=== PATIENT | female | born 1970 | race Caucasian/White ===

== ENCOUNTER 2016-11-21 13:54 | Emergency (ER) | payer OTHER ==
[2016-11-21 14:05] VITALS: BP 143/87
[2016-11-21 14:47] LABS: APPEARANCE,URINE CLEAR; BILIRUBIN,URINE NEGATIVE (NEGATIVE); CALCIUM OXALATE CRYSTALS,URINE FEW /HPF; GLUCOSE, URINE NEGATIVE (NEGATIVE); KETONES,URINE NEGATIVE (NEGATIVE); LEUKOCYTE ESTERASE,URINE NEGATIVE (NEGATIVE); NITRITE,URINE NEGATIVE (NEGATIVE); PROTEIN,URINE NEGATIVE (NEGATIVE); URINE SPECIFIC GRAVITY 1.011; UROBILINOGEN,URINE NEGATIVE mg/dL (<2.0)
--- NOTE | 2016-11-21 14:49 | ER Document Report ---
ED General - General Chief Complaint: Abnormal Lab Results Stated Complaint: ABNORMAL LABS Time Seen by Provider: 11/21/16 14:21 Notes: Patient states she was recently seen by her primary care physician and diagnosed with hyponatremia. She was then referred to nephrology and they ordered an ultrasound. His ultrasound showed bilateral hydronephrosis that is improving since previous exam. It also showed multiple stones. I did call and speak with the patient's administrative representative who is Dr. Vences. Dr. Vences told me that she received report that the patient could not urinate so she referred her to the emergency department. Patient denies being unable to urinate. Patient states she feels sometimes that she cannot fully empty her bladder but she is able to urinate. She denies any pain. She denies any nausea or vomiting. No weakness or numbness. No vomiting or diarrhea. No fevers. Symptoms have been mild and intermittent. Nothing makes them better or worse. TRAVEL OUTSIDE OF THE [place] IN LAST 30 DAYS: No - Related Data Allergies/Adverse Reactions: No Known Allergies Allergy (Unverified 11/21/16 14:07) Past Medical History - Social History Smoking Status: Never Smoker Frequency of alcohol use: Occasional Family History: Reviewed & Not Pertinent Patient has suicidal ideation: No Patient has homicidal ideation: No Renal/ Medical History: Reports: Hx Kidney Stones. Denies: Hx Peritoneal Dialysis Review of Systems - Review of Systems Constitutional: denies: Fever, Malaise, Weakness Gastrointestinal: denies: Abdominal pain, Diarrhea, Vomiting Genitourinary: denies: Burning, Dysuria, Discharge -: Yes All other systems reviewed and negative Physical Exam - Vital signs Vitals: Temp Pulse Resp BP Pulse Ox 98.9 F 82 14 143/87 H 100 11/21/16 14:01 11/21/16 14:01 11/21/16 14:01 11/21/16 14:01 11/21/16 14:01 Interpretation: Normal - General General appearance: Appears well, Alert - HEENT Head: Normocephalic, Atraumatic Eyes: Normal Pupils: PERRL - Respiratory Respiratory status: No respiratory distress Chest status: Nontender Breath sounds: Normal Chest palpation: Normal - Cardiovascular Rhythm: Regular Heart sounds: Normal auscultation Murmur: No - Abdominal Inspection: Normal Distension: No distension Bowel sounds: Normal Tenderness: Nontender Organomegaly: No organomegaly - Back Back: Normal, Nontender - Extremities General upper extremity: Normal inspection, Nontender, Normal color, Normal ROM , Normal temperature General lower extremity: Normal inspection, Nontender, Normal color, Normal ROM , Normal temperature, Normal weight bearing. No: Kate's sign - Neurological Neuro grossly intact: Yes Cognition: Normal Orientation: AAOx4 Judith Coma Scale Eye Opening: Spontaneous Judith Coma Scale Verbal: Oriented Judith Coma Scale Motor: Obeys Commands Judith Coma Scale Total: 15 Speech: Normal Motor strength normal: LUE, RUE, LLE, RLE Sensory: Normal - Psychological Associated symptoms: Normal affect, Normal mood - Skin Skin Temperature: Warm Skin Moisture: Dry Skin Color: Normal Course - Re-evaluation Re-evalutation: 11/21/16 15:47 Patient has been resting comfortably in the emergency department without any complaints. Abdomen is still soft nontender and nondistended. I have discussed the case with her administrative representative. Patient is stable for discharge home and will follow-up as an outpatient. - Vital Signs Vital signs: Temp Pulse Resp BP Pulse Ox 98.9 F 82 14 143/87 H 100 11/21/16 14:01 11/21/16 14:01 11/21/16 14:01 11/21/16 14:01 11/21/16 14:01 - Laboratory Result Diagrams: 11/21/16 14:35 11/21/16 14:35 Laboratory results interpreted by me: 11/21/16 11/21/16 14:35 14:35 RDW 14.4 H Est GFR (Non-Af Amer) 55 L Discharge - Discharge Condition: Good Disposition: HOME, SELF-CARE Additional Instructions: The laboratories today were unremarkable. Please follow-up with your administrative representative as scheduled. Please discuss referral to urology with your administrative representative and primary care doctor. Return if any problems with pain, vomiting, urination or any concerns per Referrals: KRISSY VENCES MD [ACTIVE STAFF] - Follow up in 1 week
[2016-11-21 15:02] LABS: HEMATOCRIT 44.4 % (36.0-47.0); HEMOGLOBIN 14.8 g/dL (12.0-15.5); MEAN CORPUSCULAR HEMOGLOBIN 30.8 pg (27.0-33.4); MEAN CORPUSCULAR HGB CONC 33.4 g/dL (32.0-36.0); MEAN CORPUSCULAR VOLUME 92 fl (80-97); RED BLOOD COUNT 4.81 10^6/uL (3.72-5.28); RED CELL DISTRIBUTION WIDTH 14.4 % (11.5-14.0); WHITE BLOOD COUNT 10.3 10^3/uL (4.0-10.5)
[2016-11-21 15:04] LABS: ANION GAP 12 (5-19); BLOOD UREA NITROGEN 15 mg/dL (7-20); CALCIUM 9.4 mg/dL (8.4-10.2); CARBON DIOXIDE 22 mmol/L (22-30); CHLORIDE 107 mmol/L (98-107); CREATININE RESULT 1.08 mg/dL (0.52-1.25); GLUCOSE 91 mg/dL (75-110); POTASSIUM 4.9 mmol/L (3.6-5.0); SODIUM 140.8 mmol/L (137-145)
[2016-11-21 15:28] LABS: BASOPHILS % (MANUAL) 1 % (0-2); EOSINOPHILS % (MANUAL) 1 % (0-6); LYMPHOCYTES % (MANUAL) 24 % (13-45); TOTAL CELLS COUNTED 100
[2016-11-21 15:32] LABS: ANISOCYTOSIS SLIGHT
== END 2016-11-21 15:55 | disposition home or self-care (01) ==
LOC: ER 13:54
DX: N13.2 Hydronephrosis with renal and ureteral calculous obstruction (principal); E87.1 Hypo-osmolality and hyponatremia
CPT/HCPCS: 36415; 80048; 81001; 81025; 85025; 99283

== ENCOUNTER 2020-02-06 15:03 | Emergency (ER) | payer OTHER ==
[2020-02-06 15:33] VITALS: BP 180/98
[2020-02-06] MEDS ORDERED: ASPIRIN 81 MG TABLET, CHEWABLE PO ONE (16:35)
--- NOTE | 2020-02-06 16:37 | ER Document Report ---
ED Medical Screen (RME) - General Chief Complaint: Arm Pain Stated Complaint: LEFT ARM PAIN Time Seen by Provider: 02/06/20 16:29 Primary Care Provider: CAROLE CLARK MD [Primary Care Provider] - Follow up as needed Mode of Arrival: Ambulatory Information source: Patient Notes: HPI; 49-year-old female past medical history significant for hypertension presents emergency room with persistent left upper arm pain for the past 10 days after receiving a tetanus shot. She denies any chest pain, shortness of breath, difficulty breathing. States she was [facility] secondary to elevated blood pressure. States she has been taking her medications as prescribed. Denies any fevers, no generalized weakness. States she has been taking Tylenol without relief. PE: Alert and oriented x3. Mild distress noted. Lungs: Clear to auscultation without rales, rhonchi, wheezes. Heart: Regular rate rhythm without murmurs, rubs, gallops. Left arm without erythema or swelling. It is tender over the left deltoid but there is no obvious cellulitis noted. I have greeted and performed a rapid initial assessment of this patient. A comprehensive ED assessment and evaluation of the patient, analysis of test results and completion of the medical decision making process will be conducted by additional ED providers. I have specifically instructed the patient or family members with the patient to immediately return to any nursing staff should anything change in the patient's condition or with their chief complaint. TRAVEL OUTSIDE OF THE [place] IN LAST 30 DAYS: No - Related Data Allergies/Adverse Reactions: oxycodone Allergy (Verified 02/06/20 16:33) Home Medications: lisinopril Past Medical History - Social History Chew tobacco use (# tins/day): No Frequency of alcohol use: None Drug Abuse: None Renal/ Medical History: Reports: Hx Kidney Stones. Denies: Hx Peritoneal Dialysis Physical Exam - Vital signs Vitals: Temp Pulse Resp BP Pulse Ox 98.3 F 67 16 180/98 H 100 02/06/20 15:31 02/06/20 15:31 02/06/20 15:31 02/06/20 15:31 02/06/20 15:31 Course - Vital Signs Vital signs: Temp Pulse Resp BP Pulse Ox 98.3 F 67 16 180/98 H 100 02/06/20 15:31 02/06/20 15:31 02/06/20 15:31 02/06/20 15:31 02/06/20 15:31 Doctor's Discharge - Discharge Referrals: CAROLE CLARK MD [Primary Care Provider] - Follow up as needed
--- NOTE | 2020-02-06 18:36 | RADIOLOGY REPORT (SQ) ---
EXAM DESCRIPTION: VENOUS UNILATERAL UPPER IMAGES COMPLETED DATE/TIME: 02/06/2020 5:12 pm REASON FOR STUDY: left arm pain COMPARISON: None. TECHNIQUE: Dynamic and static gorman scale and color images acquired of the left arm venous system. Se lected spectral images acquired with additional compression and augmentation maneuvers. The contralat eral subclavian vein and internal jugular vein were also imaged. Images stored on PACS. LIMITATIONS: None. FINDINGS: INTERNAL JUGULAR VEIN: Normal phasicity, compression, augmentation. No visualized echogeni c material on gorman scale. No defects on color images. Comparison opposite side normal. SUBCLAVIAN VEIN: Normal compression, augmentation. No visualized echogenic material on gorman scale. No defects on color images. AXILLARY VEIN: Normal compression, augmentation. No visualized echogenic material on gorman scale. No d efects on color images. BRACHIAL VEIN: Normal compression, augmentation. No visualized echogenic material on gorman scale. No d efects on color images. BASILIC VEIN: Normal compression, augmentation. No visualized echogenic material on gorman scale. No de fects on color images. CEPHALIC VEIN: Normal compression, augmentation. No visualized echogenic material on gorman scale. No d efects on color images. OTHER: No other significant finding. CONTRALATERAL SUBCLAVIAN VEIN AND INTERNAL JUGULAR VEIN: Normal phasicity, compression and augmentation. No visualized echogenic material on gorman scale. No de fects on color images. IMPRESSION: NO EVIDENCE DVT OR SVT LEFT ARM. TECHNICAL DOCUMENTATION: JOB ID: [id number] 2010 [employer]- All Rights Reserved Reading location - IP/workstation name: [email or web address]
--- NOTE | 2020-02-06 18:50 | ER Document Report ---
ED General - General Chief Complaint: Arm Pain Stated Complaint: LEFT ARM PAIN Time Seen by Provider: 02/06/20 16:29 Primary Care Provider: CAROLE CLARK MD [Primary Care Provider] - Follow up as needed Mode of Arrival: Ambulatory Notes: HPI: 49-year-old female who states left shoulder/arm pain since being injected with a tetanus shot around 8 days ago. She denies any swelling or redness of the arm. She denies any weakness or numbness. She denies any chest pain, shortness of breath, cough. She states she also walks her dog and holds the dog leash in the left hand and believes that the dog recently may have "pulled too hard". Patient was seen at the urgent care and sent here for cardiac evaluation secondary to elevated blood pressure. She states she has taken her blood pr essure medications. She denies any headache, again any chest pain, no weakness or numbness, calf pain or leg swelling. ROS: See HPI All other review of systems reviewed and otherwise negative Reviewed vital signs and nursing note as charted by RN. PHYSICAL EXAM: CONSTITUTIONAL: Alert and oriented and responds appropriately to questions. Well-appearing; well-nourished HEAD: Normocephalic; atraumatic EYES: PERRL; Conjunctivae clear, sclerae non-icteric NECK: Supple without meningismus; non-tender CARD: Regular rate and rhythm; no murmurs; symmetric distal pulses RESP: Normal chest excursion without splinting or tachypnea; breath sounds clear and equal bilaterally ABD/GI: Normal bowel sounds; non-distended; soft, non-tender BACK: The back appears normal and is non-tender to palpation EXT: Normal ROM in all joints; no obvious swelling, erythema, or tenderness to left upper extremity. Full painless range of motion. Excellent distal pulses SKIN: No acute lesions noted NEURO: CN 2-12 intact; 5/5 bilateral upper and lower extremity strength with sensation intact to light touch PSYCH: The patient's mood and manner are appropriate. Grooming and personal hygiene are appropriate. TRAVEL OUTSIDE OF THE [place] IN LAST 30 DAYS: No - Related Data Allergies/Adverse Reactions: oxycodone Allergy (Verified 02/06/20 16:33) Home Medications: lisinopril Past Medical History - General Information source: Patient - Social History Smoking Status: Never Smoker Chew tobacco use (# tins/day): No Frequency of alcohol use: None Drug Abuse: None Family History: Reviewed & Not Pertinent Renal/ Medical History: Reports: Hx Kidney Stones. Denies: Hx Peritoneal Dialysis Physical Exam - Vital signs Vitals: Temp Pulse Resp BP Pulse Ox 98.3 F 67 16 180/98 H 100 02/06/20 15:31 02/06/20 15:31 02/06/20 15:31 02/06/20 15:31 02/06/20 15:31 Course - Re-evaluation Re-evalutation: Given the above history and physical, the patient had a Doppler ordered in triage as well as a cardiac panel. Patient has no signs or symptoms of a DVT. No weakness or numbness. Patient denies any chest pain. I do believe that the patient's symptoms are mostly musculoskeletal in nature. 02/06/20 18:50 EKG shows heart of 52, normal sinus rhythm, normal axis, no ST elevation or depression. 02/06/20 20:25 Labs and imaging as recorded. No change in exam. Patient will be discharged home with strict return precautions and follow-up with the primary care physician. Patient still has no headache, chest pain, leg swelling. She understands the importance of follow-up for reevaluation of her blood pressure. - Vital Signs Vital signs: Temp Pulse Resp BP Pulse Ox 98.3 F 67 16 180/98 H 100 02/06/20 15:31 02/06/20 15:31 02/06/20 15:31 02/06/20 15:31 02/06/20 15:31 - Laboratory Result Diagrams: 02/06/20 19:35 02/06/20 19:35 Laboratory results interpreted by me: 02/06/20 02/06/20 19:35 19:35 RDW 14.7 H Alkaline Phosphatase 34 L Discharge - Discharge Clinical Impression: Left arm pain Condition: Good Disposition: HOME, SELF-CARE Additional Instructions: Come back immediately for any increased pain, swelling of the arm, weakness or numbness, anterior chest pain, shortness of breath, leg swelling, weakness or numbness, or any other acute problems. Please make sure that you follow-up with your primary care physician for reassessment of your blood pressure as discussed. Referrals: CAROLE CLARK MD [Primary Care Provider] - Follow up as needed
[2020-02-06 19:49] LABS: ABSOLUTE EOSINOPHILS # (AUTO) 0.2 10^3/uL (0.0-0.6); ABSOLUTE LYMPHOCYTES (AUTO) 1.9 10^3/uL (0.5-4.7); ABSOLUTE MONOCYTES (AUTO) 0.5 10^3/uL (0.1-1.4); ABSOLUTE NEUT (AUTO) 4.6 10^3/uL (1.7-8.2); BASOPHILS % (AUTO) 0.6 % (0-2); EOSINOPHILS % (AUTO) 2.2 % (0-6); HEMATOCRIT 39.9 % (36.0-47.0); HEMOGLOBIN 13.6 g/dL (12.0-15.5); LYMPHOCYTES % (AUTO) 25.8 % (13-45); MEAN CORPUSCULAR HEMOGLOBIN 30.7 pg (27.0-33.4); MEAN CORPUSCULAR VOLUME 90 fl (80-97); MONOCYTES % (AUTO) 7.5 % (3-13); PLATELET COUNT 245 10^3/uL (150-450); RED BLOOD COUNT 4.42 10^6/uL (3.72-5.28); RED CELL DISTRIBUTION WIDTH 14.7 % (11.5-14.0); SEGMENTED NEUTROPHILS % (AUTO) 63.9 % (42-78); TOTAL CELLS COUNTED % (AUTO) 100 %; WHITE BLOOD COUNT 7.3 10^3/uL (4.0-10.5)
[2020-02-06 20:04] LABS: ALKALINE PHOSPHATASE 34 U/L (38-126); ANION GAP 7 (5-19); ASPARTATE AMINO TRANSFERASE 27 U/L (14-36); BILIRUBIN,DIRECT 0.3 mg/dL (0.0-0.4); BILIRUBIN,TOTAL 0.6 mg/dL (0.2-1.3); BLOOD UREA NITROGEN 17 mg/dL (7-20); CALCIUM 9.2 mg/dL (8.4-10.2); CARBON DIOXIDE 26 mmol/L (22-30); CHLORIDE 105 mmol/L (98-107); CREATINE KINASE 83 U/L (30-135); GLUCOSE 91 mg/dL (75-110); POTASSIUM 4.8 mmol/L (3.6-5.0); TOTAL PROTEIN 6.8 g/dL (6.3-8.2)
[2020-02-06 20:22] LABS: CREATINE KINASE MB 1.18 ng/mL (<4.55)
[2020-02-06 20:23] LABS: TROPONIN I < 0.012 ng/mL
--- NOTE | 2020-02-06 21:01 | EKG REPORT ---
SEVERITY:- NORMAL ECG - SINUS RHYTHM : Confirmed by: Preston Fritz MD 06-Feb-2020 21:01:21
== END 2020-02-06 21:17 | disposition home or self-care (01) ==
LOC: ER 15:03
DX: M79.602 Pain in left arm (principal); Z87.442 Personal history of urinary calculi; Z88.6 Allergy status to analgesic agent
CPT/HCPCS: 36415; 80053; 82550; 82553; 84484; 85025; 93005; 93010; 93971; 99285